=== PATIENT | male | born 1945 | race Caucasian/White ===

== ENCOUNTER 2021-10-10 18:20 | Observation (INO) ==
[2021-10-10] MEDS ORDERED: SODIUM CHLORIDE 0.9% 1,000 ML IV STA (19:55)
[2021-10-10] MEDS ORDERED: MORPHINE 2 MG/1 ML SYRINGE IV ONE (20:04)
[2021-10-10] MEDS ORDERED: ONDANSETRON 4 MG/2 ML VIAL IV ONE (20:04)
[2021-10-10 20:17] LABS: Basophils % 0.3 % (0.0-0.8); Eosinophils % 0.2 % (0.00-10.9); Hemoglobin 15.3 GM/DL (14.0-18.0); Immature Granulocytes % 0.3 %; Immature Granulocytes Absolute 0.03 #; Lymphocytes % 9.4 % (21.2-54.2); Mean Corpuscular Volume 89.6 FL (87-102); Mean Platelet Volume 8.9 FL (9.6-12.0); Monocytes # 0.7 10*3/uL (0.11-0.8); Monocytes % 5.9 % (1.7-12.7); Neutrophils % 83.9 % (38.7-73.9); Platelet Count 203 T/CUMM (130-400); Red Blood Count 5.02 MC/CUMM (3.8-5.5); Red Cell Distribution Width 13.5 % (9.3-17.3); White Blood Count 10.9 T/CUMM (4-12)
[2021-10-10 20:19] LABS: Urine Appearance Clear (Clear); Urine Color Yellow (Yellow); Urine Specific Gravity >= 1.030 (1.001-1.035); Urine pH 5.5 (4.5-8.0)
[2021-10-10 20:20] LABS: Bilirubin,Urine Negative (Negative); Blood, Urine Small mg/dL (Negative); Glucose,Urine (UA) Negative (Negative); Ketones,Urine Negative (Negative); Nitrite,Urine Negative (Negative); Protein,Urine Trace mg/dL (Negative); Urine Urobilinogen 0.2 eU/dL (<2.0)
[2021-10-10 20:24] LABS: Mucus,Urine Moderate /LPF (Occasional); RBC,Urine 22 /HPF (0-4)
[2021-10-10 20:39] LABS: Albumin 3.4 G/DL (3.4-5.0); Bilirubin,Total 0.5 MG/DL (0.20-1.00); Calcium 9.6 MG/DL (8.5-10.1); Osmolality,Calculated 280.5 MOS/KG (273-304); Potassium 4.3 MMOL/L (3.5-5.1); Total Protein 6.8 G/DL (6.4-8.2)
[2021-10-10] MEDS ORDERED: HYDROmorphone 1 MG/1 ML SYRINGE IV STA (21:18)
[2021-10-10] MEDS ORDERED: KETOROLAC 30 MG/1 ML VIAL IV ONE (21:18)
[2021-10-10] MEDS ORDERED: HYDROmorphone 1 MG/1 ML SYRINGE IV PRN (21:47)
[2021-10-10] MEDS ORDERED: KETOROLAC 30 MG/1 ML VIAL IV PRN (21:47)
[2021-10-10] MEDS ORDERED: ACETAMINOPHEN 325 MG TABLET PO PRN (21:47)
[2021-10-10] MEDS ORDERED: NALOXONE 0.4 MG/ML VIAL IV PRN (21:47)
[2021-10-10] MEDS ORDERED: ONDANSETRON 4 MG/2 ML VIAL IV PRN (21:47)
[2021-10-11] MEDS: SODIUM CHLORIDE 0.9% 1,000 ML IV SCH ×4 (00:08→21:28)
[2021-10-11 05:31] LABS: Basophils % 0.3 % (0.0-0.8); Eosinophils % 0.1 % (0.00-10.9); Immature Granulocytes % 0.4 %; Immature Granulocytes Absolute 0.03 #; Lymphocytes # 1.3 10*3/uL (1.4-4.0); Lymphocytes % 17.8 % (21.2-54.2); Mean Corpuscular HGB Conc 34.6 GM/DL (32-36); Mean Corpuscular Volume 89.4 FL (87-102); Mean Platelet Volume 9.2 FL (9.6-12.0); Monocytes # 0.7 10*3/uL (0.11-0.8); Monocytes % 10.2 % (1.7-12.7); Neutrophils % 71.2 % (38.7-73.9); Platelet Count 169 T/CUMM (130-400); Red Blood Count 4.14 MC/CUMM (3.8-5.5); Red Cell Distribution Width 13.4 % (9.3-17.3)
[2021-10-11 05:39] LABS: Hemoglobin 12.8 GM/DL (14.0-18.0); White Blood Count 7.2 T/CUMM (4-12)
[2021-10-11 05:43] LABS: Calcium 8.4 MG/DL (8.5-10.1); Osmolality,Calculated 279.5 MOS/KG (273-304); Potassium 4.4 MMOL/L (3.5-5.1)
[2021-10-11] MEDS ORDERED: cefTRIAXone 1,000 MG in SODIUM CHLORIDE 0.9% 100 ML IV ONE (08:18)
[2021-10-11] MEDS ORDERED: SEVOFLURANE 1 UNIT/15 MINUTE INH ONE ×3 (09:13→12:34)
[2021-10-11] MEDS ORDERED: LIDOCAINE 2% 5 ML VIAL ONE (09:13)
[2021-10-11] MEDS ORDERED: propofoL 200 MG/20 ML VIAL IV ONE (09:13)
[2021-10-11] MEDS ORDERED: fentaNYL 100 MCG/2 ML VIAL ONE (09:14)
[2021-10-11] MEDS ORDERED: MIDAZOLAM 2 MG/2 ML VIAL ONE (12:00)
[2021-10-11 12:55] LABS: RBC,Urine 499 /HPF (0-4)
[2021-10-11 12:57] LABS: Urine Appearance Cloudy (Clear); Urine Color Light Red (Yellow)
[2021-10-11 12:58] LABS: Bilirubin,Urine Negative (Negative); Blood, Urine Large mg/dL (Negative); Glucose,Urine (UA) Negative (Negative); Ketones,Urine Negative (Negative); Nitrite,Urine Negative (Negative); Protein,Urine Negative (Negative); Urine Urobilinogen 0.2 eU/dL (<2.0); Urine pH 5.5 (4.5-8.0)
[2021-10-11] MEDS: DOCUSATE SODIUM 100 MG CAPSULE PO SCH ×2 (13:06→21:26)
[2021-10-11] MEDS: PANTOPRAZOLE 40 MG TABLET PO SCH (13:07)
[2021-10-11] MEDS ORDERED: hydrALAZINE 20 MG/1 ML VIAL IV PRN (13:07)
[2021-10-11] MEDS ORDERED: SIMVASTATIN 20 MG TABLET PO SCH (21:00)
[2021-10-12 04:48] LABS: Basophils % 0.4 % (0.0-0.8); Eosinophils # 0.1 10*3/uL (0.0-0.87); Eosinophils % 1.2 % (0.00-10.9); Hemoglobin 12.6 GM/DL (14.0-18.0); Immature Granulocytes % 0.4 %; Immature Granulocytes Absolute 0.03 #; Lymphocytes # 1.8 10*3/uL (1.4-4.0); Lymphocytes % 22.3 % (21.2-54.2); Mean Corpuscular HGB Conc 33.2 GM/DL (32-36); Mean Corpuscular Volume 90.7 FL (87-102); Mean Platelet Volume 9.4 FL (9.6-12.0); Monocytes # 0.9 10*3/uL (0.11-0.8); Monocytes % 10.4 % (1.7-12.7); Neutrophils % 65.3 % (38.7-73.9); Platelet Count 179 T/CUMM (130-400); Red Blood Count 4.19 MC/CUMM (3.8-5.5); Red Cell Distribution Width 13.6 % (9.3-17.3); White Blood Count 8.2 T/CUMM (4-12)
[2021-10-12] MEDS: SODIUM CHLORIDE 0.9% 1,000 ML IV SCH (05:02)
[2021-10-12 05:06] LABS: Alanine Aminotransferase 33 U/L (16-61); Albumin 2.6 G/DL (3.4-5.0); Alkaline Phosphatase 58 U/L (45-117); Aspartate Amino Transferase 25 U/L (0-37); Bilirubin,Total < 0.39 MG/DL (0.20-1.00); Blood Urea Nitrogen 15 MG/DL (7-18); Calcium 8.1 MG/DL (8.5-10.1); Carbon Dioxide 23 MMOL/L (21-32); Chloride 119 MMOL/L (98-107); Glucose 99 MG/DL (74-106); Osmolality,Calculated 290.6 MOS/KG (273-304); Potassium 3.8 MMOL/L (3.5-5.1); Sodium 146 MMOL/L (136-145)
[2021-10-12] MEDS: PANTOPRAZOLE 40 MG TABLET PO SCH (08:50)
[2021-10-12] MEDS: DOCUSATE SODIUM 100 MG CAPSULE PO SCH (08:50)
[2021-10-12] MEDS ORDERED: MAGNESIUM OXIDE 400 MG TABLET PO SCH (09:00)
[2021-10-12 11:38] VITALS: BP 148/77
[2021-10-16 00:11] LABS: CDT Result Negative (Negative); CDT Specimen Source STOOL
== END 2021-10-12 14:11 | disposition home or self-care (01) ==
LOC: N.ED 18:20 → N.3E 18:20
PROVIDERS: ADMIT Internal Medicine; ATTEND Internal Medicine

== ENCOUNTER 2021-10-15 15:48 | Inpatient (IN) ==
[2021-10-15] MEDS ORDERED: ONDANSETRON 4 MG/2 ML VIAL IV PRN (19:00)
[2021-10-15] MEDS ORDERED: ACETAMINOPHEN 325 MG TABLET PO PRN (19:00)
[2021-10-15] MEDS ORDERED: ENOXAPARIN 40 MG/0.4 ML SYRINGE SUBCUT SCH (21:00)
[2021-10-15] MEDS: COLESTIPOL 1 GM TABLET PO SCH (21:18)
[2021-10-15] MEDS: DOCUSATE SODIUM 100 MG CAPSULE PO SCH (21:18)
[2021-10-16] MEDS: SODIUM CHLORIDE 0.9% 1,000 ML IV SCH ×3 (01:47→13:50)
[2021-10-16 07:26] LABS: Amorphous Crystals,Urine Occasional /HPF (Few); Mucus,Urine Many /LPF (Occasional); RBC,Urine 277 /HPF (0-4)
[2021-10-16 07:27] LABS: Bilirubin,Urine Negative (Negative); Blood, Urine Large mg/dL (Negative); Glucose,Urine (UA) Negative (Negative); Ketones,Urine Negative (Negative); Nitrite,Urine Negative (Negative); Protein,Urine 100 mg/dL (Negative); Urine Appearance Turbid (Clear); Urine Color Yellow (Yellow); Urine Specific Gravity > 1.030 (1.001-1.035); Urine Urobilinogen 0.2 eU/dL (<2.0); Urine pH 5.5 (4.5-8.0)
[2021-10-16 07:32] LABS: Basophils % 0.6 % (0.0-0.8); Eosinophils # 0.2 10*3/uL (0.0-0.87); Eosinophils % 2.8 % (0.00-10.9); Hematocrit 36.8 VOL% (42.0-52.0); Immature Granulocytes % 0.1 %; Immature Granulocytes Absolute 0.01 #; Lymphocytes # 1.9 10*3/uL (1.4-4.0); Mean Corpuscular HGB Conc 34.2 GM/DL (32-36); Mean Corpuscular Volume 89.5 FL (87-102); Mean Platelet Volume 9.6 FL (9.6-12.0); Monocytes # 0.8 10*3/uL (0.11-0.8); Monocytes % 11.4 % (1.7-12.7); Neutrophils % 57.1 % (38.7-73.9); Platelet Count 214 T/CUMM (130-400); Red Blood Count 4.11 MC/CUMM (3.8-5.5); Red Cell Distribution Width 13.6 % (9.3-17.3); White Blood Count 6.7 T/CUMM (4-12)
[2021-10-16 07:34] LABS: Hemoglobin 12.6 GM/DL (14.0-18.0)
[2021-10-16 07:41] LABS: Albumin 2.6 G/DL (3.4-5.0); Bilirubin,Total 0.4 MG/DL (0.20-1.00); Calcium 8.4 MG/DL (8.5-10.1); Potassium 3.7 MMOL/L (3.5-5.1); Total Protein 5.5 G/DL (6.4-8.2)
[2021-10-16] MEDS: PANTOPRAZOLE 40 MG TABLET PO SCH (09:51)
[2021-10-16] MEDS: DOCUSATE SODIUM 100 MG CAPSULE PO SCH ×2 (10:16→21:31)
[2021-10-16] MEDS: COLESTIPOL 1 GM TABLET PO SCH ×2 (11:50→21:31)
[2021-10-16] MEDS ORDERED: POLYETHYLENE GLYCOL POWDER 255 GM BOTTLE PO ONE (18:00)
[2021-10-17] MEDS ORDERED: POLYETHYLENE GLYCOL POWDER 255 GM BOTTLE PO ONE (05:00)
[2021-10-17 05:09] LABS: PT Patient Result 11.1 SECS (10.1-12.1)
[2021-10-17] MEDS: SODIUM CHLORIDE 0.9% 1,000 ML IV SCH ×4 (06:07→20:30)
[2021-10-17] MEDS ORDERED: cefTRIAXone 1,000 MG in SODIUM CHLORIDE 0.9% 100 ML IV ONE (09:00)
[2021-10-17] MEDS: LACTATED RINGERS 1,000 ML IV SCH ×2 (09:00→16:09)
[2021-10-17] MEDS: DOCUSATE SODIUM 100 MG CAPSULE PO SCH ×2 (09:04→22:11)
[2021-10-17] MEDS: PANTOPRAZOLE 40 MG TABLET PO SCH (09:04)
[2021-10-17] MEDS: COLESTIPOL 1 GM TABLET PO SCH ×2 (09:05→22:11)
[2021-10-17] MEDS ORDERED: MIDAZOLAM 2 MG/2 ML VIAL ONE (14:37)
[2021-10-17] MEDS ORDERED: fentaNYL 100 MCG/2 ML VIAL ONE (14:37)
[2021-10-17] MEDS ORDERED: LIDOCAINE 2% 5 ML VIAL ONE (14:37)
[2021-10-17] MEDS ORDERED: propofoL 200 MG/20 ML VIAL IV ONE (14:37)
[2021-10-17] MEDS ORDERED: ePHEDrine 50 MG/ML VIAL ONE (15:11)
[2021-10-17] MEDS ORDERED: SEVOFLURANE 1 UNIT/15 MINUTE INH ONE (16:02)
[2021-10-17] MEDS ORDERED: oxyCODONE/ACETAMINOPHEN 5-325 MG TABLET PO PRN (18:05)
[2021-10-17] MEDS: oxyCODONE/ACETAMINOPHEN 5-325 MG TABLET PO PRN ×2 (18:12→22:12)
[2021-10-18] MEDS: SODIUM CHLORIDE 0.9% 1,000 ML IV SCH ×3 (04:12→20:12)
[2021-10-18] MEDS: DOCUSATE SODIUM 100 MG CAPSULE PO SCH ×2 (09:22→21:53)
[2021-10-18] MEDS: COLESTIPOL 1 GM TABLET PO SCH ×2 (09:22→21:45)
[2021-10-18] MEDS: PANTOPRAZOLE 40 MG TABLET PO SCH (09:22)
[2021-10-18] MEDS ORDERED: DUTASTERIDE 0.5 MG CAPSULE PO SCH (21:00)
[2021-10-19] MEDS: SODIUM CHLORIDE 0.9% 1,000 ML IV SCH ×2 (03:29→10:14)
[2021-10-19] MEDS: oxyCODONE/ACETAMINOPHEN 5-325 MG TABLET PO PRN (05:27)
[2021-10-19 07:13] LABS: Calcium 8.1 MG/DL (8.5-10.1); Osmolality,Calculated 289.4 MOS/KG (273-304); Potassium 3.5 MMOL/L (3.5-5.1)
[2021-10-19] MEDS: PANTOPRAZOLE 40 MG TABLET PO SCH (08:21)
[2021-10-19] MEDS: DOCUSATE SODIUM 100 MG CAPSULE PO SCH (08:22)
[2021-10-19] MEDS: COLESTIPOL 1 GM TABLET PO SCH (10:13)
[2021-10-19 12:25] VITALS: BP 130/85
[2021-10-20 08:56] LABS: IgA Subclass 1 128 mg/dL (50 - 314); IgA Subclass 2 22.1 mg/dL; IgA Total 169 mg/dL (61 - 356)
[2021-10-20 13:16] LABS: Tissue Transglutaminase IgA Ab < 1.2 U/mL
[2021-10-20 22:46] LABS: IgA Serum (MAYO) 165 mg/dL (61 - 356)
[2021-10-23 14:21] LABS: Stone Analysis Interpretation SEE COMMENTS
== END 2021-10-19 15:50 | disposition home or self-care (01) | DRG 988 ==
LOC: N.5E 18:37
PROVIDERS: ADMIT Internal Medicine; ATTEND Internal Medicine
PROC: COLONBX (2021-10-17 10:05)